=== PATIENT | female | born 1975 | race Caucasian/White ===

== ENCOUNTER 2024-03-27 20:52 | Emergency (ER) | payer OTHER ==
[~2024-03-27] VITALS: Ht 167.6 cm; Wt 86.0 kg
[2024-03-27 20:55] VITALS: O2SAT 97
[2024-03-27] MEDS ORDERED: NAPR-1176 MT (23:08)
[2024-03-27] MEDS ORDERED: LIDO700A15 TP (23:08)
[2024-03-27] MEDS: ACETAMINOPHEN 325MG TABLET PO ONE (23:36)
[2024-03-28 00:26] VITALS: BP 122/66; PULSE 78; RESP 19; TEMP 36.78072; O2SAT 100
== END 2024-03-28 00:28 | disposition home or self-care (01) ==
LOC: ER 21:08
DX: S80.01XA Contusion of right knee, initial encounter (principal); M25.561 Pain in right knee; F20.9 Schizophrenia, unspecified; Z79.1 Long term (current) use of non-steroidal anti-inflammatories (NSAID); W18.39XA Other fall on same level, initial encounter; Y93.89 Activity, other specified; Y92.89 Other specified places as the place of occurrence of the external cause; Y99.8 Other external cause status
CPT/HCPCS: 73562; 99283